=== PATIENT | female | born 1980 | race African-American/Black ===

== ENCOUNTER 2021-06-18 16:01 | Emergency (ER) | payer OTHER ==
[~2021-06-18] VITALS: Ht 162.6 cm; Wt 82.1 kg
--- NOTE | 2021-06-18 16:20 | NUR ---
patient bibs c/o vaginal bleeding started sunday s/p removing control inplant. Aox4, no sob noted, no s/o any acute distress. able to to make needs known. denies pain at this time. breathing even and unlabored. Dr Ascencio at bedside. will continue with plan of care
[2021-06-18 16:49] LABS: BASOPHILS # (AUTO) 0.1 K/uL (0.0-0.2); BASOPHILS % (AUTO) 0.6 % (0.0-2.0); EOSINOPHILS % (AUTO) 0.1 % (0.0-6.0); HEMATOCRIT 41 % (33-45); HEMOGLOBIN 13.6 g/dL (11.5-14.8); LYMPHOCYTES # (AUTO) 1.5 K/uL (0.8-4.8); LYMPHOCYTES % (AUTO) 11.5 % (20.0-44.0); MEAN CORPUSCULAR HGB CONC 33 g/dl (31.0-36.0); MEAN CORPUSCULAR VOLUME 94 fL (82-100); MONOCYTES # (AUTO) 0.6 K/uL (0.1-1.30); MONOCYTES % (AUTO) 4.7 % (2.0-12.0); NEUTROPHILS # (AUTO) 10.5 K/uL (1.8-8.9); NEUTROPHILS % (AUTO) 83.1 % (43.0-81.0); PLATELET COUNT (AUTO) 283 K/uL (150-450); RED BLOOD CELL COUNT(AUTO) 4.31 MIL/uL (4.0-5.2); WHITE BLOOD COUNT (AUTO) 12.7 K/uL (4.3-11.0)
[2021-06-18 16:52] LABS: BILIRUBIN,URINE NEGATIVE (NEGATIVE); COLOR,URINE YELLOW (YELLOW); LEUKOCYTE ESTERASE ,URINE NEGATIVE (NEGATIVE); NITRITE, URINE NEGATIVE (NEGATIVE); PROTEIN,URINE TRACE mg/dl (NEGATIVE); UGLUCOSE NEGATIVE (NEGATIVE); UROBILINOGEN,URINE 0.2 EU/dL (0.2)
[2021-06-18 17:13] LABS: BACTERIA,URINE RARE /HPF (None Seen); URINE AMORPHOUS URATE Many /HPF (None Seen)
[2021-06-18 18:16] LABS: CALCIUM, SERUM 8.6 mg/dL (8.5-10.1); POTASSIUM 3.9 mmol/L (3.5-5.1)
[2021-06-18 18:20] LABS: ALBUMIN 4.1 g/dL (3.4-5.0); BILIRUBIN,DIRECT 0.1 mg/dL (0.0-0.2); BILIRUBIN,TOTAL 0.7 mg/dL (0.2-1.0); TOTAL PROTEIN, SERUM 7.9 g/dL (6.4-8.2)
[2021-06-18 19:56] VITALS: BP 122/75
--- NOTE | 2021-06-18 19:56 | NUR ---
Patient discharged to home in stable condition. Written and verbal after care instructions given. Patient verbalizes understanding of instruction. Pt ambulated out of ED. VSS.
== END 2021-06-18 19:56 | disposition home or self-care (01) ==
LOC: ER 16:01
DX: N93.8 Other specified abnormal uterine and vaginal bleeding (principal); R10.31 Right lower quadrant pain; R10.32 Left lower quadrant pain
CPT/HCPCS: 36415; 76856-TC; 80048-TC; 80076-TC; 81001; 83690-TC; 84703-TC; 85025-TC

== ENCOUNTER 2023-08-18 03:11 | Emergency (ER) | payer BC ==
[~2023-08-18] VITALS: Ht 160 cm; Wt 81.6 kg
[2023-08-18 03:35] VITALS: BP 154/91; TEMP 98.3
[2023-08-18 04:44] VITALS: O2SAT 98
== END 2023-08-18 04:45 | disposition home or self-care (01) ==
LOC: ER 03:13
DX: H92.01 Otalgia, right ear (principal)